=== PATIENT | male | born 1970 | race Caucasian/White ===

== ENCOUNTER 2025-09-03 13:10 | Emergency (ER) | payer MEDICARE, OTHER ==
[~2025-09-03] VITALS: Ht 177.8 cm; Wt 81.8 kg
[~2025-09-03 13:10] MED LIST: CHLO100T47 PO; DIVA-153 PO; HYDR-4808 PO; LITH150C PO; MIRT-89 PO; RISP3TAB35 PO; TRAZ-257 PO; ZIPR80CA2 PO
[2025-09-03] MEDS: ACETAMINOPHEN 500 MG TABLET PO ONE (14:30)
[2025-09-03 15:50] VITALS: TEMP 97.9
[2025-09-03 16:11] VITALS: BP 138/80; PULSE 76; RESP 18; O2SAT 99
== END 2025-09-03 16:16 | disposition home or self-care (01) ==
LOC: EMS 13:18
DX: S93.401A Sprain of unspecified ligament of right ankle, initial encounter (principal); E78.00 Pure hypercholesterolemia, unspecified; F20.9 Schizophrenia, unspecified; F31.9 Bipolar disorder, unspecified; I10 Essential (primary) hypertension; Z79.899 Other long term (current) drug therapy; Z98.890 Other specified postprocedural states; X50.1XXA Overexertion from prolonged static or awkward postures, initial encounter; Y93.01 Activity, walking, marching and hiking; Y92.89 Other specified places as the place of occurrence of the external cause; Y99.8 Other external cause status
CPT/HCPCS: 29540; 99283